=== PATIENT | female | born 1995 | race Hispanic/Latino ===

== ENCOUNTER 2018-10-20 03:58 | Emergency (ER) | payer SELFPAY ==
--- NOTE | 2018-10-20 04:43 | C.PDOC ---
History Of Present Illness Patient is a 23 year old female who presents to the ED s/p elbow fracture 2 weeks ago. Patient has a posterior splint in place and c/o pain to the wrist for 3 days. Patient states she took Tylenol with out relief. Patient denies weakness, numbness, or new injuries. Time Seen by Provider: 10/20/18 04:23 Chief Complaint (Nursing): Lower Extremity Problem/Injury History Per: Patient History/Exam Limitations: no limitations Onset/Duration Of Symptoms: Days Current Symptoms Are (Timing): Still Present Additional History Per: Patient Past Medical History Reviewed: Historical Data, Nursing Documentation, Vital Signs Vital Signs: Last Vital Signs Temp 98.6 F 10/20/18 04:14 Pulse 95 H 10/20/18 04:14 Resp 20 10/20/18 04:14 BP 139/85 10/20/18 04:14 Pulse Ox 97 10/20/18 04:14 - Medical History PMH: Fractures (rt humurus) Surgical History: No Surg Hx Family History: States: Unknown Family Hx - Social History Hx Tobacco Use: Yes Hx Alcohol Use: No Hx Substance Use: No Review Of Systems Constitutional: Negative for: Weakness Musculoskeletal: Positive for: Arm Pain (right wrist) Skin: Positive for: Other (irritation to right wrist) Neurological: Negative for: Weakness, Numbness Physical Exam - Physical Exam Appears: Non-toxic, No Acute Distress Skin: Normal Color, Warm, Dry Oral Mucosa: Moist Extremity: Tenderness (right wrist ), Capillary Refill (less than 2 seconds ), Other (posterior splint in place to right arm with ulnar aspect right wrist irritation ) Pulses: Right Radial: Normal Neurological/Psych: Oriented x3, Normal Speech, Normal Cognition, Normal Motor, Normal Sensation ED Course And Treatment O2 Sat by Pulse Oximetry: 97 (on RA) Pulse Ox Interpretation: Normal Orthopedic Time Out: Side verified, Site verified, Patient ID confirmed, Sterile procedures obs. Procedure: Splint Type: Posterior Location: Right, Wrist Consent obtained: Verbal Performed by: Mid-level Provider (by CP checked by me) Capillary refill: Normal Distal Sensation: Normal Distal Motor Function: Normal Capillary Refill: Normal Compartment: Normal Distal Sensation: Normal Distal Motor Function: Normal Patient tolerated procedure: Well Medical Decision Making Medical Decision Making: Plan: * Splint removal * New splint applied, done by CP * Patient states feeling comfort, no longer in pain Disposition Counseled Patient/Family Regarding: Diagnosis, Need For Followup - Disposition Referrals: [facility] [Outside] Disposition: HOME/ ROUTINE Disposition Time: 05:23 Condition: IMPROVED Additional Instructions: Keep splint clean and dry. Elevate arm when possible. FOllow up wiht orthopedics sooner than scheduled appointment if possible. Instructions: Cast Care Forms: [facility] (Kinyarwanda), General Discharge Instructions - Clinical Impression Clinical Impression: Encounter for cast check - PA / [employer] / Resident Statement MD/DO has reviewed & agrees with the documentation as recorded. - Scribe Statement The provider has reviewed the documentation as recorded by the Eunibrashida Madera All medical record entries made by the Eunibrashida were at my direction and personally dictated by me. I have reviewed the chart and agree that the record accurately reflects my personal performance of the history, physical exam, medical decision making, and the department course for this patient. I have also personally directed, reviewed, and agree with the discharge instructions and disposition.
[2018-10-20 05:31] VITALS: BP 135/82; PULSE 83; RESP 16; TEMP 98.8
[2018-10-20 06:13] VITALS: O2SAT 97
== END 2018-10-20 05:41 | disposition home or self-care (01) ==
LOC: C.ER 03:58
DX: Z46.89 Encounter for fitting and adjustment of other specified devices (principal)